=== PATIENT | female | born 1955 | race Caucasian/White ===

== ENCOUNTER 2018-08-27 11:15 | Day surgery (SDC) | payer MEDICARE, MEDICAID ==
[~2018-08-27] VITALS: Ht 172.7 cm; Wt 86.1 kg
[~2018-08-27 11:15] MED LIST: ASPI-529 PO; ATOR10TA PO; CALC667T5 PO; DIPH25CA63 PO; FLUT100D2 INH; GABA-532 PO; GLIM4TAB79 PO; HYDR25TA4 PO; INSU100V5 IJ; LORA10TA61 PO; LOSA25TA96 PO; METF500T PO; METO50TA16 PO; PANT-47 PO; SEVE800T8 PO; TICA90TA PO
[2018-08-27 11:34] VITALS: BP 123/95
[2018-08-27] MEDS ORDERED: ATOR10TA87 PO (11:52)
[2018-08-27] MEDS ORDERED: NIFE30TA2 PO (11:54)
[2018-08-27] MEDS ORDERED: METO-539 PO (11:55)
[2018-08-27] MEDS ORDERED: CLOP75TA33 PO (12:03)
[2018-08-27] MEDS ORDERED: LIDOcaine 1%/PF 5ML 10 MG/ML VIAL ONE (13:41)
[2018-08-27] MEDS ORDERED: heparin 1,000unit/ml 10ml vial 10 ML ONE (13:59)
[2018-08-27] MEDS ORDERED: ceFAZolin 2gm in dextrose, iso 100 ML IV STA (14:04)
[2018-08-27] MEDS ORDERED: cefazolin/dext.iso 2gm/50ml 50 ML IV ONE (14:10)
[2018-08-27 14:30] VITALS: BP 180/89
[2018-08-27 14:45] VITALS: BP 178/85
[2018-08-27 15:00] VITALS: BP 177/88
== END 2018-08-27 15:00 | disposition home or self-care (01) ==
LOC: SSTAY O 11:15
PROVIDERS: ATTEND Radiology Diagnostic Radiology
DX: T82.898A Other specified complication of vascular prosthetic devices, implants and grafts, initial encounter (principal); Y83.8 Other surgical procedures as the cause of abnormal reaction of the patient, or of later complication, without mention of misadventure at the time of the procedure; Y92.89 Other specified places as the place of occurrence of the external cause; E11.22 Type 2 diabetes mellitus with diabetic chronic kidney disease; I12.9 Hypertensive chronic kidney disease with stage 1 through stage 4 chronic kidney disease, or unspecified chronic kidney disease; N18.9 Chronic kidney disease, unspecified; I25.10 Atherosclerotic heart disease of native coronary artery without angina pectoris; E78.5 Hyperlipidemia, unspecified; K21.9 Gastro-esophageal reflux disease without esophagitis; M19.90 Unspecified osteoarthritis, unspecified site; H91.8X3 Other specified hearing loss, bilateral; Z90.710 Acquired absence of both cervix and uterus; Z85.3 Personal history of malignant neoplasm of breast; Z79.891 Long term (current) use of opiate analgesic; Z79.82 Long term (current) use of aspirin; Z79.84 Long term (current) use of oral hypoglycemic drugs; Z95.5 Presence of coronary angioplasty implant and graft; Z88.6 Allergy status to analgesic agent; Z88.5 Allergy status to narcotic agent; Z88.2 Allergy status to sulfonamides; Z79.4 Long term (current) use of insulin; Z88.8 Allergy status to other drugs, medicaments and biological substances; Z79.899 Other long term (current) drug therapy; Z98.890 Other specified postprocedural states; Z83.3 Family history of diabetes mellitus; Z80.9 Family history of malignant neoplasm, unspecified; Z82.49 Family history of ischemic heart disease and other diseases of the circulatory system
CPT/HCPCS: 36581; C1750; J0690; J1644; J2001; A9270; C1769

== ENCOUNTER 2020-11-02 15:58 | Outpatient (CLI) | payer MEDICARE, MEDICAID ==
[~2020-11-02 15:58] MED LIST changes: -ATOR10TA PO; +ATOR10TA87 PO; -CALC667T5 PO; +CALC667T6 PO; +CLOP75TA33 PO; +GLIM4TAB7 PO; -GLIM4TAB79 PO; +METO-539 PO; -METO50TA16 PO; +NIFE30TA2 PO; -TICA90TA PO
== END 2020-11-02 23:59 | disposition home or self-care (01) ==
LOC: LAB 15:58
DX: Z00.00 Encounter for general adult medical examination without abnormal findings (principal)